=== PATIENT | male | born 1930 | race Two or more races ===

== ENCOUNTER → 2016-05-10 | Outpatient (CLI) | payer MEDICARE, OTHER ==
[~2016-05-10] MED LIST: AFRIN15 M1 INH; ALDACTONE25 MG PO; ASPIRIN LO-DOSE81 MG PO; COLACE100 MG PO; COREG6.25 MG PO; CRESTOR20 MG PO; DRISDOL 5050000 UNIT PO; DULCOLAX10 MG R; ELIQUIS5 MG PO; FEOSOL325 MG PO; LANOXIN (DIGI125 MCG PO; LASIX20 MG PO; LASIX40 MG PO; LEVOTHROID (SY25 MCG PO; LISINOPRIL2.5 MG PO; MILK OF MA400 MG/5 M PO; MIRALAX PO527 GM/BOT PO; NITROSTAT0.4 MG SL; NORCO 5-325 TA1 EACH PO; OCEAN NASAL) (A44 ML NOSE; OXYGEN M-15 INH; PLAVIX75 MG PO; PROTONIX40 MG PO; PROZAC40 MG PO; ROBITUSSIN100 MG/5 M PO; TIROSINT25 MCG PO; TYLENOL ARTHRI650 MG PO; TYLENOL325 MG PO; VITAMIN B-121000 MCG PO; VITAMIN D50000 UNIT PO
[2016-05-10 14:11] LABS: ANION GAP 12.2 (10.0-19.0); CALCIUM 8.5 mg/dL (8.5-10.5); CREATININE 1.3 mg/dL (0.6-1.3); POTASSIUM 4.2 mMol/L (3.7-5.1)
== END | disposition disaster alternative care site (69) ==
LOC: LNHI 13:48
PROVIDERS: Internal Medicine Cardiovascular Disease
DX: I25.10 Atherosclerotic heart disease of native coronary artery without angina pectoris (principal); I50.22 Chronic systolic (congestive) heart failure; I35.0 Nonrheumatic aortic (valve) stenosis; I25.5 Ischemic cardiomyopathy; I48.2 Chronic atrial fibrillation

== ENCOUNTER → 2016-05-17 | Outpatient (CLI) | payer MEDICARE, OTHER ==
[2016-05-17 11:50] LABS: ANION GAP 14.4 (10.0-19.0); CALCIUM 8.8 mg/dL (8.5-10.5); CREATININE 1.8 mg/dL (0.6-1.3); POTASSIUM 4.4 mMol/L (3.7-5.1)
== END | disposition disaster alternative care site (69) ==
LOC: LNHI 11:00
PROVIDERS: Internal Medicine Cardiovascular Disease
DX: I50.22 Chronic systolic (congestive) heart failure (principal); I48.2 Chronic atrial fibrillation; I35.0 Nonrheumatic aortic (valve) stenosis; I25.10 Atherosclerotic heart disease of native coronary artery without angina pectoris

== ENCOUNTER 2016-06-02 20:19 | Emergency (ER) | payer MEDICARE, OTHER ==
--- NOTE | ~2016-06-02 | ER ---
PATIENT'S NAME: MIKE NOVOA [facility] AGE: 85 Y [address] ROOM: [place], [place] [address] LOCATION: [facility]LY [facility] ADMIT DATE: 06/02/2016 ER/Outpatient Report DISCHARGE DATE: 06/02/2016 FAMILY PHYSICIAN: Yohannes Parker MD ATTENDING PHYSICIAN: Keshav Correia Time of Arrival: 2019 hours. Time of Evaluation: 2023 hours. CHIEF COMPLAINT: Head laceration. HISTORY OF PRESENT ILLNESS: The patient is an 85-year-old male who presents to the emergency department today with chief complaint of head laceration. Apparently, he was attempting to sit down on a walker when he missed and landed on his head and hit likely the side of the bed. He has had some increased weakness and some falls over the past 10 days. The patient was in the [facility] after a stay in the hospital, but was recently moved home. His daughter is at the bedside and also answers questions. He does have some dementia. The patient denies any pain, 0/10 in severity. PAST MEDICAL HISTORY: Hypertension, AFib, gastroesophageal reflux disease, hard of hearing. PAST SURGICAL HISTORY: CABG, AICD, diskectomy, and heart stents. SOCIAL HISTORY: The patient denies any tobacco, alcohol, or illicit drug use. ALLERGIES: NO KNOWN DRUG ALLERGIES. MEDICATIONS: Please see list. ROS: All systems are reviewed by myself and are negative with the exception of those discussed in HPI and past medical history. PHYSICAL EXAMINATION: VITAL SIGNS: Weight 75.4 kg, blood pressure 102/64, pulse 89, respiratory rate 16, temperature 96.9, oxygen saturation 97% on room air. GENERAL: The patient is an 85-year-old male, who appears stated age, well- PATIENT'S NAME: MIKE NOVOA [facility] AGE: 85 Y [address] ROOM: [place], [place] [address] LOCATION: [facility] ADMIT DATE: 06/02/2016 ER/Outpatient Report DISCHARGE DATE: 06/02/2016 FAMILY PHYSICIAN: Yohannes Parker MD ATTENDING PHYSICIAN: Keshav Correia developed, well-nourished. HEENT: Head: Normocephalic. He does have evidence of trauma with a 2 cm laceration to the right occipitoparietal region. Pupils are equal, round, and reactive to light and accommodation. Extraocular motions are intact. Nares are patent bilaterally. TMs are clear. No hemotympanum. No Yip sign. No raccoon eyes. NECK: Supple. There is no midline tenderness to palpation. CARDIOVASCULAR: Regular rate and rhythm. No murmurs, rubs, or gallops. LUNGS: Clear to auscultation bilaterally. No wheezes, rales, or rhonchi. ABDOMEN: Soft, nontender, and nondistended. No rebound, rigidity, or guarding. MUSCULOSKELETAL: The patient does have tenderness to palpation of the right lower ribs. Moves all 4 extremities. No bony tenderness to palpation. SKIN: Warm and dry. He does have a 2 cm gaping laceration on the right occipitoparietal region. LABORATORY DATA AND X-RAYS: CBC: White blood cell count 3.4; hemoglobin 9.4, which is stable from 02/14/2016; platelets are 87. PTT 33, PT is 14.1, INR is 1.34. CMP is unremarkable except for BUN 39; creatinine 1.8, which is stable from 05/17/2016. LFTs are normal. Urinalysis is unremarkable. CT scan of the brain and C-spine are obtained, shows no acute process. IMPRESSION: 1. Mechanical fall. 2. Chronic anemia. 3. Chronic kidney disease. 4. Initial visit. EMERGENCY DEPARTMENT COURSE: The patient was brought back to the examination room. Seen and evaluated by myself. IV is established. Laboratory analysis and imaging are obtained as described above. The patient was given 1 L of normal saline. I discussed the results with the patient and his daughters as well as the son-in-law who is at the bedside. I have discussed that if the patient is getting more weak and having balance issues, he may need more care than can be provided at home. I have had this discussion with the family. The family and the patient would still like to go home at this time. The daughter does report she will stay with him over the weekend and have a family discussion over to determine perhaps that the patient needs a [facility] level of care. We did ambulate the patient throughout the emergency department here. He does ambulate unassisted with a walker. Family is comfortable with the care of plan at this time. I would like him to follow up with [facility] tomorrow for re-evaluation. I have discussed ziahxo-oz-tfxy instructions including worsening symptoms or any other concerns to return to the emergency department PATIENT'S NAME: MIKE NOVOA [facility] AGE: 85 Y [address] ROOM: [place], [place] [address] LOCATION: [facility] ADMIT DATE: 06/02/2016 ER/Outpatient Report DISCHARGE DATE: 06/02/2016 FAMILY PHYSICIAN: Yohannes Parker MD ATTENDING PHYSICIAN: Keshav Correia as soon as possible. The family is agreeable. The patient is agreeable without further questions. DISPOSITION: The patient discharged home in good condition. DO MANUELA DIAZ/modl /[id number] d: 06/03/16 0325 t: 06/03/16 0546, OUTPATIENT REPORT
[~2016-06-02 20:19] MED LIST changes: -FEOSOL325 MG PO; -TIROSINT25 MCG PO
[2016-06-02 21:00] LABS: BASOPHIL % 0.9 %; EOSINOPHIL % 1.2 %; HEMATOCRIT 32.1 % (33.0-50.0); HEMOGLOBIN 9.4 g/dL (11.0-16.0); IMMATURE GRANULOCYTE % 0.3 %; LYMPHOCYTE % 28.4 %; MCHC 29.3 gm/dL (32.0-36.5); MONOCYTE # 0.4 K/uL (0.0-1.0); MONOCYTE % 12.3 %; NEUTROPHIL % 56.9 %; NRBC % 0.9 /100WBC (0-0.00); RBC 3.91 M/uL (3.50-5.50); WBC 3.4 K/uL (4.0-11.0)
[2016-06-02 21:01] LABS: INR - (THERAPEUTIC) 1.34 (0.92-1.07); MCV 82.1 fl (83.0-98.0); PLATELET COUNT 87 K/uL (150-450); PROTIME 14.1 SECONDS (9.8-11.4); PTT 33 SECONDS (25-32); RDW-CV 19.9 % (11.9-14.6)
[2016-06-02 21:02] LABS: ALBUMIN 2.9 gm/dL (3.5-5.0); ANION GAP 15.7 (10.0-19.0); CALCIUM 8.7 mg/dL (8.5-10.5); CREATININE 1.8 mg/dL (0.6-1.3); POTASSIUM 4.7 mMol/L (3.7-5.1); TOTAL BILIRUBIN 1.2 mg/dL (0.0-1.5); TOTAL PROTEIN 7.2 g/dL (6.0-8.4)
[2016-06-02 22:19] LABS: BILIRUBIN URINE NEGATIVE (NEGATIVE); BLOOD URINE NEGATIVE /UL (NEGATIVE); COLOR URINE YELLOW (YELLOW); GLUCOSE URINE NEGATIVE (NEGATIVE); KETONE URINE NEGATIVE (NEGATIVE); LEUKOCYTES URINE NEGATIVE /UL (NEGATIVE); NITRITE URINE NEGATIVE (NEGATIVE); PROTEIN URINE 30 mg/dL (NEGATIVE); SPEC GRAVITY URINE 1.025 (1.003-1.035); TURBIDITY URINE CLEAR (CLEAR); UROBILINOGEN URINE 4 mg/dL (NORMAL)
[2016-06-02 22:36] LABS: RBC URINE NEGATIVE #/HPF (NEGATIVE); WBC URINE NEGATIVE #/HPF (NEGATIVE)
[2016-06-02 22:37] LABS: BACTERIA URINE NEGATIVE (NEGATIVE)
== END 2016-06-02 22:43 | disposition disaster alternative care site (69) ==
LOC: GACC 20:19
PROVIDERS: Emergency Medicine
PROC: 0HQ0XZZ Repair Scalp Skin, External Approach (ICD-10-PCS; principal; 2016-06-02)
DX: S01.01XA Laceration without foreign body of scalp, initial encounter (principal); D64.9 Anemia, unspecified; I12.9 Hypertensive chronic kidney disease with stage 1 through stage 4 chronic kidney disease, or unspecified chronic kidney disease; N18.9 Chronic kidney disease, unspecified; K21.9 Gastro-esophageal reflux disease without esophagitis; I48.91 Unspecified atrial fibrillation; W19.XXXA Unspecified fall, initial encounter
CPT/HCPCS: J7030

== ENCOUNTER → 2016-06-02 | Outpatient (CLI) | payer MEDICARE, OTHER | END | disposition disaster alternative care site (69) | LOC: GAMB 20:04 | DX: R53.1 Weakness (principal); S01.91XD Laceration without foreign body of unspecified part of head, subsequent encounter; M54.5 Low back pain; I25.5 Ischemic cardiomyopathy; E03.9 Hypothyroidism, unspecified; I48.2 Chronic atrial fibrillation; I10 Essential (primary) hypertension; R29.6 Repeated falls; Z79.82 Long term (current) use of aspirin; Z79.899 Other long term (current) drug therapy; W19.XXXD Unspecified fall, subsequent encounter | CPT/HCPCS: A0425; A0429 ==

== ENCOUNTER → 2016-06-29 | Outpatient (CLI) | payer MEDICARE, OTHER ==
[~2016-06-29] MED LIST changes: +FEOSOL325 MG PO; +TIROSINT25 MCG PO
== END | disposition disaster alternative care site (69) ==
LOC: LNHI 17:22
DX: I25.5 Ischemic cardiomyopathy (principal); I48.2 Chronic atrial fibrillation; I25.10 Atherosclerotic heart disease of native coronary artery without angina pectoris

== ENCOUNTER 2016-07-20 16:23 | Inpatient (IN) | payer MEDICARE, OTHER ==
[~2016-07-20] VITALS: Ht 182.9 cm; Wt 69.1 kg
--- NOTE | ~2016-07-20 | HP ---
PATIENT'S NAME: MIKE NOVOA [facility] AGE: 85 Y [address] ROOM: [address] [address] LOCATION: [facility] ADMIT DATE: 07/20/2016 History & Physical DISCHARGE DATE: FAMILY PHYSICIAN: LIYAH PHILLIPS MD ATTENDING PHYSICIAN: LIYAH PHILLIPS DATE OF SERVICE: CHIEF COMPLAINT: Increasing weakness and inability to get out of bed. HISTORY OF PRESENT ILLNESS: The patient is an elderly 85-year-old male with a known history of chronic systolic congestive heart failure with EF of 15% to 20%. He has had a LifeVest and I do believe he has a defibrillator placed in 02/07/[address] Abraham. He does have a history of a recent PCI procedure in 10/2015 to his RCA. He had significant coronary artery disease at that time of both his [place] vessels and it looks like some of his graft vessels. They planned on treating things in a staged manner. As I mentioned, the patient was at home and was increasingly weak, he unfortunately is confused and cannot really verbalize anything what is going on, so I am mainly going based on the ER notes. His family is not available at this time. They called the office and he was too weak to be transported in so they had them go ahead and bring him to the hospital. He was evaluated in the emergency room and was thought to be slightly tachycardic, was thought to have an acute exacerbation of his CHF. Although, he had no significant edema, his pro-BNP was 13,351. He has a known anemia and it was stable at 11.4, his platelet count is stable at 88, his creatinine is 2.1, I believe he is normally about 1.5 in nature; so, his creatinine is increased. It was thought best that to go ahead and admit the patient. ALLERGIES: NONE KNOWN. CURRENT MEDICATIONS: Include: 1. Acetaminophen 325 two tablets every 6 hours as needed. 2. Aspirin 81 mg daily. 3. Carvedilol 3.125 mg one tablet once a day by mouth. 4. Colace 100 mg once daily. 5. Crestor 20 mg once daily. 6. Fluoxetine 20 mg once daily. 7. Lasix 20 mg daily. 8. Levothyroxine 25 mcg daily. 9. MiraLAX 17 g daily. PATIENT'S NAME: SOMMER, MIKE G [facility] AGE: 85 Y [address] ROOM: [place] [address] LOCATION: [facility] ADMIT DATE: 07/20/2016 History & Physical DISCHARGE DATE: FAMILY PHYSICIAN: LIYAH PHILLIPS MD ATTENDING PHYSICIAN: LIYAH PHILLIPS 10. Nitrostat 0.4 sublingually p.r.n. chest pain, may repeat to a total of 3 tabs over a 15 minute period. 11. Pantoprazole 40 mg daily. 12. Prozac 20 mg daily. 13. Spironolactone 25 mg mtkc-b-axoiyg daily. 14. Tirosint 25 mcg oral capsule 1 capsule orally daily, which is his thyroid replacement. 15. Vitamin B12 a 1000 mcg tablet daily. PAST MEDICAL HISTORY: Chronic health problems includes history of hypothyroidism, acquired in nature, scufr-nr-lkereix systolic congestive heart failure with his most recent EF being 15% to 20% in 09/2015. He did have an AICD placed in 01/2016. He has a history of chronic atrial fib, chronic back pain, cardiovascular disease with history of coronary artery disease involving his coronary artery bypass graft of his [place] heart without angina, history of depression, dizziness, hypertension, hypothyroidism, atrial fibrillation, and previous history of CVA along with vitamin D and vitamin B12 deficiencies, history of hyperlipidemia, constipation, and a history of a GI bleed, which they were unable to do scopes at that time due to his recent GI bleed and the history of his recent stents. PREVIOUS SURGERIES: He had a coronary artery angiogram in 2015 with coronary artery bypass grafting in the past, diskectomy, previously intramedullary rodding of his femur for a trochanteric fracture. Cardiac cath in 10/21/2015 had showed severe stenosis of his [place] RCA, severe stenosis of his [place] LAD, distal to the saphenous vein graft, saphenous vein graft to circumflex was not identified, they did a PCI with drug-eluting stent x2 to his RCA, they recommended continued medical management and were considering a staged procedure to work on other options. He has had previous vertebroplasty and kyphoplasty along with a previous diskectomy and a history of intramedullary rodding of his femur for trochanteric fracture. SOCIAL HISTORY: The patient lives at home. He is retired from the [employer]. He is a former smoker. He uses seatbelts. He does not actively smoke or drink. He is . REVIEW OF SYSTEMS: Just increasing weakness. Denies any recent chest pains or swelling. Denies any recent shortness of breath, but I do not think he has really been active. PHYSICAL EXAMINATION: GENERAL: Alert elderly male who responds appropriately to questions, but just PATIENT'S NAME: MIKE NOVOA [facility] AGE: 85 Y [address] ROOM: [address] [place] [id number] LOC[facility]: [facility] ADMIT DATE: 07/20/2016 History & Physical DISCHARGE DATE: FAMILY PHYSICIAN: LIYAH PHILLIPS MD ATTENDING PHYSICIAN: LIYAH PHILLIPS cannot seem to recall events prior to today. VITAL SIGNS: His pulse is currently around 110-120 and his blood pressures in the 120s/60s. HEENT: Normal. NECK: Supple. No adenopathy. LUNGS: Clear. HEART: Tachycardic and irregular. ABDOMEN: Benign. EXTREMITIES: Negative. NEUROLOGIC: Cranial nerves 2 through 12 are intact. Reflexes are 1+ and symmetric. The patient can lift his extremities out of the bed; so, he has got 4+ to 5 strength, but he just feels weak and was unable to walk. LABORATORY DATA: CPK is 50, troponin is less than 0.040, and his pro-BNP was 13,351. His white count is stable at 3.6, hemoglobin stable 11.4, hematocrit 39.3, and platelet count is 85, which is also stable. His glucose is 96, BUN 33, creatinine 2.1, sodium 139, potassium 4.4, chloride 104, CO2 24, calcium 9.1, total protein 7.2, albumin 3.0, AST 31, ALT 23, alkaline phosphatase 132, total bili 2.3, magnesium 2, and eGFR is at 30. His pro-time is 14.6 with an INR of 1.39 and a PTT of 32. CK-MB is 1.4. His differential showed 56% neutrophils. Chest x- ray, PA and lateral, showed stable cardiomegaly. Sigiyfxd-ii-rwrfgkyd parenchymal lung scarring is stable. No consolidating pneumonia. Stable right-sided pacemaker and also stable granuloma at the right lung base. CT scan of his head showed atrophic changes, but no acute process. ASSESSMENT: 1. Queuu-nr-jmbwcof systolic congestive heart failure. 2. History of automatic implantable cardioverter-defibrillator placement due to an ejection fraction of 15% to 20%. 3. Known coronary artery disease of both his [place] and graft vessels. He is status post coronary artery bypass grafting and then more recently in 10/2015, he had drug-eluting stent x2 of his right coronary artery. His saphenous vein graft to his circumflex was occluded. He had significant disease of his [place] left anterior descending also. 4. Hypothyroidism. 5. Chronic atrial fibrillation. 6. History of osteoporosis with previous compression fractures. 7. History of B12 and vitamin D deficiency. 8. History of hypothyroidism. PLAN: We will go ahead and do repeat labs. We are going to get repeat BMP, magnesium, CBC, and TSH in the morning. He has not had a TSH. We are going to work on gently diuresing him and we will otherwise continue to follow him. PATIENT'S NAME: MIKE NOVOA [facility] AGE: 85 Y [address] ROOM: [place] [address] [facility] ADMIT DATE: 07/20/2016 History & Physical DISCHARGE DATE: FAMILY PHYSICIAN: LIYAH PHILLIPS MD ATTENDING PHYSICIAN: LIYAH PHILLIPS I am going to go ahead and cover him with Lovenox and with sequential compression of his legs. He does have the past history of the GI bleed, but that has been stable for several months now. We will follow the patient along closely and hopefully his situation will turn around. He does wish to be a DNR and DNI. The order was written. MD JAD ASHER/zully /[id number] D: [id number] T: [id number] HISTORY & PHYSICAL
--- NOTE | ~2016-07-20 | CON ---
PATIENT'S NAME: MIKE POOLE [facility] AGE: 85 Y [address] ROOM: [place] [address] LOCATION: [facility] ADMIT DATE: 07/20/2016 Consultation DISCHARGE DATE: FAMILY PHYSICIAN: LIYAH PARKER MD ATTENDING PHYSICIAN: LIYAH PARKER DATE OF CONSULTATION: 07/21/2016 REFERRING PHYSICIAN: Emilia Hull MD CARDIOLOGY CONSULTATION NOTE REFERRING PHYSICIAN: Liyah Parker MD REASON FOR CONSULTATION: History of cardiomyopathy with congestive heart failure. HISTORY OF PRESENT ILLNESS: Mr. Poole is an 85-year-old male with history of ischemic cardiomyopathy with ejection fraction of 15% to 20%. The patient is confused and has altered mental status, and is not oriented, and hence history was primarily obtained from the chart and from his daughter. According to his daughter, the patient has been feeling progressively weaker for the last few weeks. He denied any chest pain. No history of increasing shortness of breath. He can walk only a few steps and then gets very tired. He follows with Dr. Hull and he had cardiac catheterization recently in October 2015 and percutaneous intervention of the right coronary artery. Subsequently, he also had ICD placed for cardiomyopathy. He was admitted to the hospital in view of progressively increasing fatigue and generalized overall poor condition. The patient was also found to have elevated proBNP at 13,351, even though he did not have any clinical findings to suggest significant fluid overload. Also his creatinine was found to be elevated at 2.1. ALLERGIES: NO KNOWN DRUG ALLERGIES. REVIEW OF SYSTEMS: The patient denied any change in vision. No history of nausea or vomiting. No history of fever. No history of expectoration even though he has some cough. No history of urinary symptoms. No history of recent diarrhea. He has very poor functional capacity. CURRENT MEDICATIONS: His medications as an outpatient included: 1. Aspirin 81 mg daily. PATIENT'S NAME: MIKE POOLE [facility] AGE: 85 Y [address] ROOM: [place] [address] LOCATION: [facility]U ADMIT DATE: 07/20/2016 Consultation DISCHARGE DATE: FAMILY PHYSICIAN: LIYAH PARKER MD ATTENDING PHYSICIAN: LIYAH PARKER 2. Carvedilol 3.125 mg b.i.d. 3. Crestor 20 mg daily. 4. Lasix 20 mg daily. 5. Spironolactone 12.5 mg daily. Please see MAR for the remaining medications. PAST MEDICAL HISTORY: 1. Ischemic cardiomyopathy with ejection fraction of 15% to 20%. 2. Status post coronary artery bypass graft and status post percutaneous intervention of the right coronary artery, and status post ICD placement in January 2000. 3. Chronic atrial fibrillation. 4. Previous history of CVA. 5. Hyperlipidemia. 6. History of GI bleed. 7. His last cardiac catheterization in October 2014 reported severe stenosis in the [place] of right coronary artery status post stent. Stenosis of the [place] left anterior descending artery, distal to saphenous vein graft, and saphenous vein graft to circumflex could not be identified. SOCIAL HISTORY: The patient lives at home and his daughter helps him out. PHYSICAL EXAMINATION: GENERAL APPEARANCE: On examination, he is awake, however, he is not oriented to time or place. He is oriented to person. VITAL SIGNS: His pulse rate is 99 beats per minute, blood pressure is 107/65, temperature 97.7, and respiratory rate 16. HEENT: Pupils are equal and reactive. Tongue is dry. His head is atraumatic and normocephalic. NECK: No significant jugular venous distention is present. CHEST: Clear to auscultation. Breath sounds are diminished on both sides. CVS: S1 and S2 are audible. They are irregular in rate and rhythm. ABDOMEN: Soft, nontender. Bowel sounds are present. EXTREMITIES: Show no significant pedal edema. SKIN: Warm and dry. NEUROLOGIC: The patient is not oriented to time or place. He is oriented to person. He is able to move all 4 extremities. LABORATORY DATA: Sodium 140, potassium 4.4, chloride 107, CO2 of 23, BUN 35, and creatinine 1.9. Albumin 3, globulin 4.2, AST 31, ALT 23, and magnesium 2. CPK 53, CK-MB 1.4, and troponin I less than 0.04. ProBNP 11,813. White blood cell count 3.4, hemoglobin is 11.0, and platelet count 74,000. His chest x-ray showed PATIENT'S NAME: MIKE POOLE [facility] AGE: 85 Y [address] [address] [facility] AD[facility] DATE: 07/20/2016 Consultation DISCHARGE DATE: FAMILY PHYSICIAN: LIYAH PARKER MD ATTENDING PHYSICIAN: LIYAH PARKER cardiomegaly with no findings suggestive of congestive heart failure. Chronic fibrotic changes are noted in the lungs. Echocardiogram in September 2015 showed ejection fraction of 15% to 20%, spontaneous echo contrast was noted in the left atrium with suspected left atrial appendage thrombus, and moderate-to- severe mitral regurgitation. ASSESSMENT AND PLAN: 1. Fatigue. Etiology is multifactorial including cardiomyopathy with ejection fraction of 15% to 20%, advanced age, dementia, and renal insufficiency. 2. Ischemic cardiomyopathy with ejection fraction of 15% to 20%. We will continue medical therapy with beta blockers, aspirin, and statin. Monitor intake and output. Continue home diuretics. No clinical evidence of decompensated heart failure. 3. Atrial fibrillation with rapid ventricular rate. We will continue and titrate beta-blockers as tolerated. We will consider addition of digoxin, if his blood pressure remains borderline. 4. Acute on chronic kidney disease. Management per primary care provider. 5. Dementia. Management per primary care provider. 6. The plan of care was discussed with the patient and his daughter and with the nursing staff. Overall prognosis is guarded in view of poor left ventricular systolic function, poor functional capacity, dementia, and other comorbid medical conditions. We will follow the patient along with you. Thank you for allowing us in taking part in the care of this pleasant patient. MD ANNIKA ROSADO/zully /[id number] d: 07/21/163 t: 08/03/16 1743, CONSULTATION REPORT
--- NOTE | ~2016-07-20 | DS ---
PATIENT'S NAME: MIKE NOVOA [facility] AGE: 85 Y [address] ROOM: [place] [address] LOCATION: GPCU ADMIT DATE: 07/20/2016 Discharge Summary DISCHARGE DATE: 07/27/2016 FAMILY PHYSICIAN: Liyah Parker MD ATTENDING PHYSICIAN: Liyah Parker FINAL PRIMARY DISCHARGE DIAGNOSIS: Weakness. ADDITIONAL DIAGNOSES: 1. Aspiration pneumonia. 2. Aspiration, currently on mechanical soft and nectar-thick liquids. 3. Chronic systolic congestive heart failure, ejection fraction 10%-15%. 4. Chronic ischemic heart disease. 5. Essential hypertension. 6. Persistent atrial fibrillation. 7. Hyperlipidemia. 8. Left atrial thrombus. 9. Kidney disease, stage 3, associated with congestive heart failure. 10. Depression. 11. History of constipation. 12. History of vitamin B12 and D deficiency. 13. Depression. CONSULTATIONS: Cardiology on admission, July 21, 2016, [facility] Cardiology. PROCEDURES: None. IMAGING: Modified barium swallow, July 24, 2016, showed poor oral control with difficulty in bolus formation and propulsion. DISCHARGE EXAM: GENERAL: A pleasant, elderly adult male, in no acute distress. HEAD: Normocephalic, atraumatic. Eyes: Conjunctivae clear. Sclerae white. ENT: Mucous membranes moist. The patient has absent dentition, but does have dentures present. NECK: Supple. Trachea is midline. HEART: Irregularly irregular with a grade 3/6 systolic ejection murmur best heard at the left upper sternal border. LUNGS: Clear to auscultation bilaterally. ABDOMEN: Soft, nontender, and nondistended. EXTREMITIES: Warm, well perfused. No clubbing, cyanosis, or edema. SKIN: There are no acute rashes. The patient does have some ecchymoses present. NEUROLOGIC: Cranial nerves 2 through 12 grossly intact. The patient does have good bottle labeler strength 5/5 bilaterally. PATIENT'S NAME: MIKE NOVOA [facility] AGE: 85 Y [address] ROOM: [place] [address] LOCATION: GPCU ADMIT DATE: 07/20/2016 Discharge Summary DISCHARGE DATE: 07/27/2016 FAMILY PHYSICIAN: Liyah Parker MD ATTENDING PHYSICIAN: Liyah Parker DISCHARGE MEDICATIONS: 1. Eliquis 2.5 mg 1 tab p.o. b.i.d. 2. Carvedilol 6.25 mg p.o. b.i.d. 3. Cleocin 300 mg p.o. q.i.d. x5 days with stop date of 08/01/2016. 4. Vitamin B12, 1000 mcg p.o. daily. 5. Colace 100 mg p.o. b.i.d. 6. Iron sulfate 325 mg p.o. b.i.d. 7. Lasix 20 mg one tab p.o. daily. 8. Levaquin 750 mg q.48 hours with stop date of 08/01/2016. 9. Levothyroxine 50 mcg one tab p.o. daily. 10. Protonix 40 mg one tab p.o. q.h.s. 11. MiraLAX 17 g p.o. daily. 12. Crestor 20 mg one tab p.o. daily. 13. Prozac 40 mg one tab p.o. daily. 14. Spironolactone 2.5 mg one tab p.o. daily. 15. Acetaminophen 650 mg q.4 hours p.r.n. pain. 16. Hydrocodone 5/325 one tab q.4 hours p.r.n. p.o. 17. Mylanta 30 mL p.o. q.i.d. p.r.n. 18. Dulcolax 10 mg rectally every day p.r.n. constipation. 19. Robitussin 200 mg p.o. q.6 hours p.r.n. 20. Milk of Mag 30 mL p.o. daily p.r.n. constipation. 21. Nitroglycerin 0.4 mg one tab sublingual q.5 minutes p.r.n. chest pain. BRIEF HOSPITAL COURSE: Mr. Novoa is an 85-year-old gentleman with complex past medical history as noted above. He was admitted to the [facility] PCU from the [facility] Emergency Department for weakness. The patient was in his usual state of health and began progressively getting weaker. He had significant issue and was brought to the emergency department. He was found to have an elevated BNP, but did not appear to be overly fluid overloaded. Cardiology was consulted on this patient and initially recommended Lovenox for his left atrial thrombus. The patient had stable hemoglobin, and his platelets were overall okay in the 70-80 range despite being on Lovenox. On hospital day #4, the patient did develop some aspiration pneumonia and was started on clindamycin and Levaquin IV. He received physical, occupational, speech therapies while in the hospital. Because of his significant weakness and inability to go home, he was transferred to [facility] with continued antibiotics with a stop date of 08/01/2016. He will continue to receive therapies while in longterm. DISCHARGE RECOMMENDATIONS: Follow up with Dr. Parker within one week. He will be transferred to [facility] for further rehabilitation. Additionally, the patient was started on Eliquis for left atrial thrombus. We will ensure that PATIENT'S NAME: MIKE NOVOA [facility] AGE: 85 Y [address] ROOM: [place] [address] LOCATION: [facility] ADMIT DATE: 07/20/2016 Discharge Summary DISCHARGE DATE: 07/27/2016 FAMILY PHYSICIAN: Liyah Parker MD ATTENDING PHYSICIAN: Liyah Parker there is no significant chance for evidence of GI bleed or other serious bleeding, particularly with falls. He does have significantly high-risk stroke, especially given his atrial fibrillation and so we will make sure that he is properly anticoagulated. DISCHARGE CONDITION: Fair. DISCHARGE PROGNOSIS: Fair. LIYAH PARKER MD BAB/modl /[id number] d: 07/28/163 t: 08/06/16 0803, DISCHARGE SUMMARY
--- NOTE | ~2016-07-20 | CON ---
PATIENT'S NAME: MIKE NOVOA [facility] AGE: 85 Y [address] ROOM: [place] [address] LOCATION: GPCU ADMIT DATE: 07/20/2016 Consultation DISCHARGE DATE: 07/27/2016 FAMILY PHYSICIAN: Yohannes Parker MD ATTENDING PHYSICIAN: Yohannes Parker DATE OF CONSULTATION: 07/24/2016 REFERRING PHYSICIAN: Emilia Hull MD PALLIATIVE MEDICINE CONSULTATION LOCATION: [facility]. REFERRING PROVIDER: Emilia Hull MD CHIEF COMPLAINT/REASON FOR CONSULTATION: Palliative Care referral for the patient and family support and education on chronic disease. HISTORY OF PRESENT ILLNESS: The patient is an 85-year-old male with a known history of chronic systolic congestive heart failure with an EF of 15% to 20% who recently had a defibrillator placed in January of 2016. Family reports that over the last 2 weeks, the patient has been getting increasingly weak and confused and on the day of admission, was too weak to get out of bed. On admission, his proBNP was 13,351 and his creatinine was increased to 2.1. Family reports the patient lives at home alone, but that his daughter checks in daily. She reports a recent fairly steady decline in his condition and that he stopped eating on Sunday prior to admission. At the time of this consult, the patient is confused and is only able to say a few words. He does deny pain. Denies shortness of breath. Denies chest pain. Denies any recent nausea or vomiting, and at the current time is n.p.o. after aspirating and developing aspiration pneumonia during this hospital stay. He is to have a followup MBS with dietary recommendations to follow later today. Given the patient's recent decline, Palliative Care has been consulted for patient and family support and ongoing goals of care conversation. PAST SURGICAL HISTORY: Previous Operations: 1. CABG. 2. Cystectomy. 3. Intramedullary rodding of femur for intertrochanteric fracture. 4. PCI with stents. PATIENT'S NAME: MIKE NOVOA [facility] AGE: 85 Y [address] ROOM: [place] [address] LOCATION: GPCU ADMIT DATE: 07/20/2016 Consultation DISCHARGE DATE: 07/27/2016 FAMILY PHYSICIAN: Yohannes Parker MD ATTENDING PHYSICIAN: Yohannes Parker 5. AICD placement in January 2016. PAST MEDICAL HISTORY: 1. Chronic systolic congestive heart failure with EF of 15% to 20%. 2. Hypothyroidism. 3. History of chronic atrial fibrillation with atrial clot. 4. Chronic back pain. 5. Coronary artery disease. 6. Hypertension. 7. History of previous CVA. 8. Hyperlipidemia. 9. History of a GI bleed. MEDICATIONS: Please see current MAR. ALLERGIES: NO KNOWN ALLERGIES. SOCIAL HISTORY: The patient lives alone in his own home here in [place]. His daughter checks in frequently. He does have a history of 3 to 4 pack per day history of smoking for 20 years. He quit in 1964. No current tobacco or alcohol use. FAMILY HISTORY: Unknown for his parents. He does have a brother with heart disease. REVIEW OF SYSTEMS: GENERAL: The patient's family reports a poor appetite and are unaware of any changes in weight. No recent fever, chills, or night sweats. HEENT: No change in vision or hearing. No headaches. Denies sinus congestion. RESPIRATORY: No cough. No shortness of breath. CARDIOVASCULAR: No chest pain, pressure, or palpitations. Denies orthopnea. No peripheral edema. GASTROINTESTINAL: No nausea, vomiting, diarrhea, or constipation. No recent black or tarry stools. The family denies any previous difficulties with chewing or swallowing. GENITOURINARY: No dysuria. Does wear incontinence products. MUSCULOSKELETAL: Denies any back or joint pain at this time. Had been ambulating at home. NEUROLOGICAL: No numbness. No tingling. No seizures. INTEGUMENTARY: No rashes or open areas. HEMATOLOGIC: No new bruising or bleeding. PATIENT'S NAME: MIKE NOVOA [facility] AGE: 85 Y [address] ROOM: [address] [place] [address] LOCATION: GPCU ADMIT DATE: 07/20/2016 Consultation DISCHARGE DATE: 07/27/2016 FAMILY PHYSICIAN: Yohannes Parker MD ATTENDING PHYSICIAN: Yohannes Parker PHYSICAL EXAMINATION: VITAL SIGNS: Blood pressure is 99/58, heart rate 104, temperature 98.2, respirations 16, and O2 saturation is 92% on room air. GENERAL: Reveals a drowsy, but easily alert elderly male, does not appear to be in any acute distress, resting on the hospital bed. HEENT: Normocephalic and atraumatic. Pupils are equal and reactive to light. Sclerae are nonicteric. Conjunctivae pink. Tongue and mucous membranes are dry. CARDIOVASCULAR: Heart tones are irregularly irregular. Tachycardic. RESPIRATORY: Respirations are regular and nonlabored. Lung sounds are clear to auscultation bilaterally. GASTROINTESTINAL: Abdomen is soft. Nontender. Bowel sounds are present. MUSCULOSKELETAL: No significant joint deformities. Peripheral pulses are 1+ bilaterally with no clubbing, cyanosis, or edema. SKIN: Warm and dry. No unusual lesions or rashes. NEUROLOGICAL: Grossly intact. IMPRESSION AND PLAN: 1. Altered mental status. 2. Dysphagia. To have MBS today with dietary recommendations per Speech. 3. Weakness. PT and OT have been initiated. 4. Code status. The patient is a DNR/DNI and power of contracts attorney paperwork is on the chart. I visited with the patient's daughter and Daniela BOURGEOIS. I introduced the role of Palliative Care for additional support and assistance with goals of care. Discussed his chronic conditions and management of these with his acute issues as well. She does become tearful during our conversation and we talked about caregiver burnout as she has been the primary caregiver for him first since his return from [place]. At this point, she is deciding that perhaps it is time for him to go to a chcf and stay there at this time. As previously she talked about how he had been at [facility] and she had told him that she would work to get him home, but it has been a struggle with caring for him. I talked with Daniela about patient's quality of life and decisions going forward with keeping that in mind as well. Provided education to her on caregiver burnout and guidance as to where to go from here. I talked about various options to include chcf placement versus Home Health. I also provided a little bit of education on hospice should his condition continue to decline. At this point, she is wishing to pursue a chcf placement and try therapies, but also wants him to have a good quality of life. Provided emotional support and active listening. We will continue to follow for support and I also informed Daniela that Palliative Care could follow in the chcf setting if she wished for additional support and ongoing conversation. Total visit was 35 minutes. Greater than 50% of this time was spent in PATIENT'S NAME: MIKE NOVOA [facility] AGE: 85 Y [address] ROOM: [place] [address] LOCATION: GPCU ADMIT DATE: 07/20/2016 Consultation DISCHARGE DATE: 07/27/2016 FAMILY PHYSICIAN: Yohannes Parker MD ATTENDING PHYSICIAN: Yohannes Parker providing education and counseling. Thank you for allowing me to assist this patient and family. COSME CONNORS NP FOR ANALI GARCIA MD DLS/modl /[id number] CC: Emilia Hull MD d: 08/01/16 1744 t: 08/08/16 1944, CONSULTATION REPORT
--- NOTE | ~2016-07-20 | ER ---
[facility] 85 [facility] [address] ROOM: [place] [id number] LOCATION: GPCU ADMIT DATE: 07/20/2016 ER/Outpatient Report DISCHARGE DATE: FAMILY PHYSICIAN: LIYAH PARKER MD ATTENDING PHYSICIAN: LIYAH PARKER Time of Arrival: 1623 hours. Time Seen: 1633 hours. IDENTIFICATION: 85-year-old male. CHIEF COMPLAINT: Weakness. HISTORY OF PRESENT ILLNESS: The patient has had increased weakness, a little bit increased confusion according to his daughter, and unable to walk as well. He lives alone, but she has been staying with him. No fall or injury. He said he is a little bit dizzy. ALLERGIES: NO KNOWN DRUG ALLERGIES. CURRENT MEDICATIONS: 1. Vitamin B12, 1000 mcg daily. 2. Colace 100 mg b.i.d. 3. Coreg on June 29 was decreased to 3.125 mg just once daily. 4. Crestor 20 mg daily. 5. Ferrous sulfate 325 mg b.i.d. 6. Lasix 20 mg daily. 7. Aspirin 81 mg daily. The patient's Lanoxin was discontinued at his last visit. Lasix was decreased from 40-20 mg. He stopped taking his Plavix, and his Coreg was decreased by telephone to 3.125 mg just once daily. MEDICAL PROBLEMS: 1. 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 2. Chronic atrial fibrillation. 3. Chronic kidney disease. 4. Coronary artery disease with previous CABG and previous PCI to right coronary artery. The patient had a cardiac catheterization in October 2015, status post drug-eluting stent to right coronary artery stenosis. PATIENT'S NAME: MIKE NOVOA [facility] AGE: 85 Y [address] ROOM: [address] [address] LOCATION: GPCU ADMIT DATE: 07/20/2016 ER/Outpatient Report DISCHARGE DATE: FAMILY PHYSICIAN: LIYAH PARKER MD ATTENDING PHYSICIAN: LIYAH PARKER 5. Hypothyroidism. 6. Chronic congestive heart failure. 7. Chronic back pain. 8. Depression. 9. Hypertension. 10. Previous history of stroke. 11. Hyperlipidemia. 12. Chronic constipation. PRIOR SURGERIES: 1. CABG. 2. Diskectomy. 3. Kyphoplasty. 4. Intramedullary rodding of femur for a trochanteric fracture. SOCIAL HISTORY: The patient currently lives alone, but his daughter is staying with him. Tobacco use: He is a former smoker. Alcohol use: None. He is . He is retired from the [employer]. REVIEW OF SYSTEMS: All systems reviewed and negative other than what is noted in the HPI. PHYSICAL EXAMINATION: VITAL SIGNS: Blood pressure 99/66, pulse 116, respirations 20, temperature 98.3, sats 95%. GENERAL: An 85-year-old male, who is very weak, in mild distress, very pale. HEENT: Head: Normocephalic atraumatic. Ears: TMs translucent both ears. Eyes: Pupils are equal and reactive to light and accommodation. Extraocular movements intact. Conjunctivae clear. Nose: Mucosa pink. No lesions. Mouth: No lesions. Pharynx benign. NECK: Supple. No lymphadenopathy. LUNGS: Clear to auscultation. Breath sounds are equal. HEART: Regular rate and rhythm. No murmur, rub, or gallop. ABDOMEN: Bowel sounds present. Soft, nondistended, and nontender. SKIN: [place], warm, and dry. No lesions or rashes noted. NEUROLOGIC: The patient is alert. Answers almost all of my questions, but does have some occasional confusion. Cranial nerves 2 through 12 grossly intact. Motor strength 5/5 throughout. Sensation is intact to light touch. Motor strength decreased in both lower extremities. He is able to lift his legs off the cot, but not very high and not able to keep them there for very PATIENT'S NAME: MIKE NOVOA [facility] AGE: 85 Y [address] ROOM: [address] [place], [place] [address] [facility] ADMIT DATE: 07/20/2016 ER/Outpatient Report DISCHARGE DATE: FAMILY PHYSICIAN: LIYAH PARKER MD ATTENDING PHYSICIAN: LIYAH PARKER. He does have some just generalized lower extremity weakness. An IV was initiated. Normal saline at 75 mL/h. DIAGNOSTIC STUDIES: Hemoglobin 11.4, which has improved from 9.4 on June 02. Hematocrit 39.3. Platelets 85, which is stable compared to 87 on June 02. White blood cell count 3.6, which is stable from 3.4. Normal differential. INR 1.39. Sodium 139, potassium 4.4, chloride 104, CO2 of 24, BUN 33, creatinine 2.1 which is elevated from 1.8, bilirubin elevated to 2.3 which is elevated from 1.2. Troponin I less than 0.040. CK-MB 1.4. ProBNP elevated at 13,351, which is up from June 29 when it was 7055. EKG atrial fibrillation at 99 beats per minute. Nonspecific ST-T wave changes. No acute changes are noted. One-view chest x-ray: Cardiomegaly, AICD pacemaker, stable granuloma of right lung base. Head CT without contrast: Generalized atrophic changes and white matter small vessel ischemic changes. No acute findings. IMPRESSION: 1. Lower extremity weakness. 2. Pancytopenia, which appears to be stable. 3. Chronic kidney disease with acute kidney injury. 4. Hyperbilirubinemia. 5. Acute systolic congestive heart failure. 6. Chronic systolic congestive heart failure. 7. Atrial fibrillation. 8. Ischemic cardiomyopathy. PLAN: For admission per Dr. Cerna for Dr. Parker. TOR BORGES MD CAR/modl /[id number] d: 07/21/16 0050 t: 07/23/16 0701, OUTPATIENT REPORT
--- NOTE | ~2016-07-20 | ECHO ---
Transthoracic Echocardiography Report (TTE) Demographics Patient Name MIKE NOVOA Date of Study 07/21/2016 Patient Number [id number] Visit Number [id number] Date of 1930 Room Number G6301 Gender Male Number Age 85 year(s) Referring Anthony Stuffer Mindy Mclean, Physician Lauryn RT,RVT,RDCS Physician Interpreting Anthony Combs Health Technical Writer Physician Supervising Ordering Anthony Combs MD/MLP Physician Nurse Stress Field Agent Conclusions Summary Technically difficult study with suboptimal images Accurate chamber measurements could not be obtained due to inadequate endocardial border visualization. LV systolic function appears diminished with estimated left ventricular ejection fraction is 30-35%. Unable to comment on regional wall motion abnormalities due to suboptimal endocardial border delineation. The left atrium is mildly dilated. The right atrium is mild to moderately dilated. Mild to moderately dilated right ventricle. Mild-moderate mitral regurgitation by color Doppler. There is moderate aortic stenosis. The peak velocity is 3.0 m/s, the mean gradient is 21 mmHg, stroke volume index is 45 ml/m2. The gradients could be underestimated due to reduced LV systolic function There is mild to moderate aortic regurgitation by color Doppler. The estimated pulmonary pressure (RVSP) is 35-40 mmHg. Procedure Type of Study TTE procedure:2D Echocardiogram, M-Mode, Doppler , Color Doppler. Procedure Date Date: 07/21/2016 Start: 04:26 PM Study Location: Inpatient Portable Technical Quality: Adequate visualization Indications:Congenital heart disease. Appropriate Use Criteria: 9 Patient Status: Routine HR: 64 bpm BP: 109/58 mmHg Allergies - No known allergies. M-Mode/2D Measurements LV Diastolic Dimension: 6.12 cm LV Systolic Dimension: 5.17 cm LV Septum Diastolic: 1.43 cm LV Septum Systolic: 1.17 cm LV PW Diastolic: 1.17 cm LV PW Systolic: 1.82 cm Cardiac Output: 2.87 l/min AO Root Dimension: 3.4 cm LA Dimension: 3.9 cm EF Estimated: 35 % LA volume: 97 ml RV Base: 5.9 cm LVOT: 2.2 cm RV Mid: 4.6 cm LVOT VTI: 11.8 cm RV Length: 6.5 cm LV Stroke volume: 44.83 ml Doppler Measurements AV Peak Velocity: 2.98 m/s MV Peak E-Wave: 0.9 m/s AV Peak Gradient: 35.52 mmHg AV Mean Gradient: 20 mmHg MV P1/2t: 45 msec LVOT Peak Velocity: 0.62 m/s TR Velocity:1.47 m/s PV Peak Velocity: 0.65 m/s TR Gradient:8.64 mmHg PV Peak Gradient: 1.66 mmHg Estimated RAP:10 mmHg Estimated PASP: 18.64 mmHg Estimated RVSP: 19 mmHg A' Septal Velocity: 0.02 m/s E' Septal Velocity: 0.07 m/s MV E/E' Ratio: 13.6 Findings Left Ventricle Diastolic function indeterminate due to patient's arrhythmia. Right Ventricle Mild to moderately dilated right ventricle. Mildly reduced right ventricular function. Device lead noted in the right ventricle. Left Atrium The left atrium is mildly dilated. Right Atrium The right atrium is mild to moderately dilated. Device lead seen in the right atrium. Mitral Valve Mild to moderate mitral annular calcification. Mild-moderate mitral regurgitation by color Doppler. Aortic Valve There is moderate aortic stenosis. The peak velocity is 3.0 m/s, the mean gradient is 21 mmHg, stroke volume index is 45 ml/m2. There is mild to moderate aortic regurgitation by color Doppler. Tricuspid Valve Moderate tricuspid regurgitation by color Doppler. The estimated pulmonary pressure (RVSP) is 35-40 mmHg. IVC not visualized Pulmonic Valve Normal pulmonic valve structure and function. Pericardial Effusion No evidence of pericardial effusion. Miscellaneous Visualized portions of the aortic root and ascending aorta appear normal in size. Pleural Effusion No evidence of pleural effusion. Contractility Score LV regional wall motion:(0-Non visualized 1-Normal 2-Hypokinesis 3-Akinesis 4-Dyskinesis 5-Aneurysm) Signature dtt: LAURYN RIVERA dtd: 07/21/16 1626 Physician Self Edit
[~2016-07-20 16:23] MED LIST changes: -FEOSOL325 MG PO; -TIROSINT25 MCG PO
[2016-07-20 16:55] LABS: BASOPHIL % 0.8 %; EOSINOPHIL % 0.6 %; HEMOGLOBIN 11.4 g/dL (11.0-16.0); IMMATURE GRANULOCYTE % 0.3 %; LYMPHOCYTE # 1.1 K/uL (0.8-4.0); LYMPHOCYTE % 29.2 %; MCH 24.3 pg (27.0-34.0); MCV 83.8 fl (83.0-98.0); MONOCYTE # 0.5 K/uL (0.0-1.0); MONOCYTE % 13.1 %; NRBC % 1.1 /100WBC (0-0.00); PLATELET COUNT 85 K/uL (150-450); RBC 4.69 M/uL (3.50-5.50); WBC 3.6 K/uL (4.0-11.0)
[2016-07-20 16:56] LABS: HEMATOCRIT 39.3 % (33.0-50.0); RDW-CV 28.8 % (11.9-14.6)
[2016-07-20 17:01] LABS: INR - (THERAPEUTIC) 1.39 (0.92-1.07); PROTIME 14.6 SECONDS (9.8-11.4); PTT 32 SECONDS (25-32)
[2016-07-20 17:13] LABS: ALK PHOS 132 IU/L (33-138); ALT 23 IU/L (12-78); ANION GAP 15.4 (10.0-19.0); AST 31 IU/L (10-40); BLOOD UREA NITROGEN 33 mg/dL (6-24); CALCIUM 9.1 mg/dL (8.5-10.5); CHLORIDE 104 mMol/L (96-110); CO2 24 mMol/L (22-32); CPK 50 IU/L (35-332); CREATININE 2.1 mg/dL (0.6-1.3); ESTIMATED GFR (MDRD EQUATION) 30; POTASSIUM 4.4 mMol/L (3.7-5.1); SODIUM 139 mMol/L (135-145); TOTAL PROTEIN 7.2 g/dL (6.0-8.4)
[2016-07-20 17:14] LABS: TOTAL BILIRUBIN 2.3 mg/dL (0.0-1.5)
[2016-07-20] MEDS ORDERED: FEOSOL325 MG PO (21:01)
[2016-07-20] MEDS ORDERED: TIROSINT25 MCG PO (21:01)
[2016-07-21 04:48] LABS: BASOPHIL % 0.9 %; EOSINOPHIL % 0.6 %; HEMATOCRIT 37.9 % (33.0-50.0); IMMATURE GRANULOCYTE % 0.3 %; LYMPHOCYTE # 0.8 K/uL (0.8-4.0); MCH 24.6 pg (27.0-34.0); MCV 84.8 fl (83.0-98.0); MONOCYTE # 0.4 K/uL (0.0-1.0); MONOCYTE % 13.1 %; NEUTROPHIL % 60.1 %; NRBC % 0.9 /100WBC (0-0.00); PLATELET COUNT 74 K/uL (150-450); RBC 4.47 M/uL (3.50-5.50); RDW-CV 28.7 % (11.9-14.6); WBC 3.4 K/uL (4.0-11.0)
[2016-07-21 05:14] LABS: ANION GAP 14.4 (10.0-19.0); CALCIUM 8.9 mg/dL (8.5-10.5); CREATININE 1.9 mg/dL (0.6-1.3); POTASSIUM 4.4 mMol/L (3.7-5.1)
--- NOTE | 2016-07-21 08:20 | NUR ---
2034: ADMIT TO PCU FROM ER. WAS BROUGHT TO ER BY DAUGHTER FOR INCREASED WEAKNESS. HAS BEEN GETTING PROGRESSIVELY WORSE OVER LAST 10 DAYS. PT IS CONFUSED. HE KNOWS WHO HE IS AND CAN CARRY ON A CONVERSATION BUT WHEN ASKED HE DOESN'T KNOW WHERE HE IS, HE THINKS THE YEAR IS 2015 AND HAS NO IDEA WHO THE PRESIDENT IS. HEART RHYTHM IS A-FIB. INCONT OF URINE. PLT ARE 85. DENIES PAIN.
--- NOTE | 2016-07-21 08:24 | NUR ---
Significant Event: CONTINUED TO DENY PAIN. CONTINUES TO BE INCONT OF URINE. HR 90s TO 1 TEENS. REMAINS CONFUSED BUT DOES NOW KNOW HE IS IN THE HOSPITAL. REMAINS ON ROOM AIR. SLEEPING WELL MOST OF NIGHT. Follow up:
[2016-07-21 11:31] LABS: BLOOD URINE 25 /UL (NEGATIVE); GLUCOSE URINE NEGATIVE (NEGATIVE); KETONE URINE 5 mg/dL (NEGATIVE); LEUKOCYTES URINE NEGATIVE /UL (NEGATIVE); NITRITE URINE NEGATIVE (NEGATIVE); PROTEIN URINE 30 mg/dL (NEGATIVE); SPEC GRAVITY URINE 1.025 (1.003-1.035); UROBILINOGEN URINE 4 mg/dL (NORMAL)
--- NOTE | 2016-07-21 11:36 | NUR ---
EMILY Watkins at [facility] wanting an update on Binu. I called her back, , updated her to Acna' status here at [facility]. Told her that I wasn't sure at this time if he would be able to go straight home with [facility] again or if we would have to look into SNF placement for him for a short time. She was fine with this. Roland tells me that they were providing him with PT/OT/RN services for [facility]. I let her know that I would continue to keep her updated on his progress here and when dismissal got closer let her know as well. I visited with RN Beth, who tells me that he will probably be here for a few days and then she isn't for sure what the plan for dismissal will be. did come around and order for therapies to start working with him, as well as getting him a PICC line placed. I will stop by and talk with Binu and family later today or early next week. CM to continue to follow and assist.
[2016-07-21 11:38] LABS: COLOR URINE YELLOW (YELLOW); TURBIDITY URINE 1+ (CLEAR)
[2016-07-21 11:46] LABS: WBC URINE 0-2 #/HPF (NEGATIVE)
[2016-07-21 11:47] LABS: BACTERIA URINE RARE (NEGATIVE); EPITHELIAL URINE RARE #/HPF (NEGATIVE)
[2016-07-21 11:49] LABS: GRANULAR CASTS URINE RARE #/LPF (NEGATIVE)
--- NOTE | 2016-07-21 19:03 | NUR ---
VARELA PLACED TODAY FOR ACCURATE I&O. PATIENT WAS UP IN ROOM WITH PT. WALKED TO WINDOW AND BACK TO BED. PATIENT WAS ALSO UP CHAIR TODAY X1 AND TOLERATED WELL.
[2016-07-22 03:27] LABS: BASOPHIL % 0.4 %; EOSINOPHIL % 0.8 %; HEMATOCRIT 35.8 % (33.0-50.0); HEMOGLOBIN 10.6 g/dL (11.0-16.0); IMMATURE GRANULOCYTE % 0.2 %; LYMPHOCYTE # 0.9 K/uL (0.8-4.0); LYMPHOCYTE % 18.5 %; MCH 24.7 pg (27.0-34.0); MCHC 29.6 gm/dL (32.0-36.5); MCV 83.4 fl (83.0-98.0); MONOCYTE # 0.5 K/uL (0.0-1.0); MONOCYTE % 9.8 %; NEUTROPHIL # (ANC) 3.5 K/uL (1.4-9.0); NEUTROPHIL % 70.3 %; NRBC % 0 /100WBC (0-0.00); PLATELET COUNT 80 K/uL (150-450); RBC 4.29 M/uL (3.50-5.50); RDW-CV 28.6 % (11.9-14.6)
[2016-07-22 03:43] LABS: ANION GAP 15.9 (10.0-19.0); CALCIUM 8.6 mg/dL (8.5-10.5); CREATININE 1.8 mg/dL (0.6-1.3); POTASSIUM 3.9 mMol/L (3.7-5.1)
--- NOTE | 2016-07-22 04:41 | NUR ---
Significant Event: DISORIENTED TO TIME. CONFUSED.BED ALARM ON. NO ATTEMPTS TO GET UP WITHOUT ASSISTENCE.RESTED IN BED ALL OF SHIFT. TURNED Q 2 HRS SIDE TO SIDE. AFEBRILE. VSS ON RA. SBP 98-110 . ORTHOSTATIC BLOOD PRESSURES DOCUMENTED IN CHART. VARELA PRESENT WITH 800 MLS OUT. NO BM THIS SHIFT. IV TO R) FA SL. EKG THIS AM. DENIES PAIN. Follow up: CONTINUE [facility] PLAN OF CARE.
--- NOTE | 2016-07-22 15:25 | NUR ---
Significant Event: Alert but remains confused at times. Heavy 2 assist. Denies pain. Simons to DD, no diuretics given today d/t SBP 90s. Orthostatic BPs obtained and documented in progress notes. Follow up: continue plan of care/needs placement.
[2016-07-23 03:55] LABS: BASOPHIL % 0.5 %; EOSINOPHIL # 0.1 K/uL (0.0-0.5); EOSINOPHIL % 2.1 %; HEMATOCRIT 38.2 % (33.0-50.0); IMMATURE GRANULOCYTE % 0.3 %; LYMPHOCYTE % 25.7 %; MCH 24.3 pg (27.0-34.0); MCHC 28.8 gm/dL (32.0-36.5); MCV 84.5 fl (83.0-98.0); MONOCYTE # 0.5 K/uL (0.0-1.0); MONOCYTE % 12.3 %; NEUTROPHIL # (ANC) 2.2 K/uL (1.4-9.0); NEUTROPHIL % 59.1 %; NRBC % 0.8 /100WBC (0-0.00); PLATELET COUNT 78 K/uL (150-450); RBC 4.52 M/uL (3.50-5.50); RDW-CV 28.9 % (11.9-14.6); WBC 3.7 K/uL (4.0-11.0)
[2016-07-23 04:02] LABS: ANION GAP 14.9 (10.0-19.0); CALCIUM 8.6 mg/dL (8.5-10.5); CREATININE 1.6 mg/dL (0.6-1.3); MAGNESIUM 2.1 mg/dL (1.8-2.6); POTASSIUM 3.9 mMol/L (3.7-5.1)
--- NOTE | 2016-07-23 04:57 | NUR ---
Significant Event: A/0X2. DISORIENTED TO TIME. FORGETFUL TO PLACE AT TIMES.UP IN CHAIR BEGINNING OF SHIFT. TURNED Q 2 HRS SIDE TO SIDE. AFEBRILE. VSS ON RA. SBP 90'S. MAP >65. DENIES PAIN. IV TO R) FA SL. VARELA PATENT WITH 350 MLS OUT. NO BM THIS SHIFT. Follow up: CONTINUE WITH PLAN OF CARE.
--- NOTE | 2016-07-23 16:29 | NUR ---
Significant Event: Alert, remains confused to place and time. Denies pain. Around 1230 today patient was up in chair eating lunch and began choking. Patient was suctioned and O2 applied - patient moved to bed via full lift and RT then provided nasopharangeal suction and roughly 50ml of secretions suctioned. Dr Jules Fuentes notified order for PCXR, Dr Fuentes called with CXR results and notified that DR Pulido recommends a repeat CXR in 6 hours. Repeat CXR at [address] Jules Fuentes wants called with results. Speech consult in AM and NPO until then. DR Jules Fuentes wants Dr Craig notified of episode tomorrow and states he will hold off on starting antibiotics or IV fluids until tomorrow. Patient currently remains afebrile and stable on 2L/NC. Nonproductive wet cough, LS now coarse R)LL. Ronak MARISCAL'chantel at 1400 with no void as of yet. Daughter notified of episode this afternoon and of plan of care. Follow up: needs placement
[2016-07-24 03:38] LABS: BASOPHIL % 0.2 %; HEMATOCRIT 38.3 % (33.0-50.0); HEMOGLOBIN 11.4 g/dL (11.0-16.0); IMMATURE GRANULOCYTE % 0.7 %; LYMPHOCYTE # 0.5 K/uL (0.8-4.0); LYMPHOCYTE % 8.2 %; MCH 25.2 pg (27.0-34.0); MCHC 29.8 gm/dL (32.0-36.5); MCV 84.5 fl (83.0-98.0); MONOCYTE # 0.5 K/uL (0.0-1.0); MONOCYTE % 7.4 %; NEUTROPHIL # (ANC) 5.1 K/uL (1.4-9.0); NEUTROPHIL % 83.5 %; NRBC % 0.3 /100WBC (0-0.00); PLATELET COUNT 80 K/uL (150-450); RBC 4.53 M/uL (3.50-5.50); RDW-CV 29.5 % (11.9-14.6); WBC 6.1 K/uL (4.0-11.0)
--- NOTE | 2016-07-24 05:02 | NUR ---
Significant Event: DISORIENTED TO TIME,PLACE,SITUATION. FORGETFUL. SLEPT OFF AND ON THROUGHOUT THE NIGHT. TURNED Q 2 HRS SIDE TO SIDE. AFEBRILE. VSS ON RA. WEANED PATIENT TO RA AND WAS 90-93% ON RA. PATIENT STILL HAS A WEAK DRY COUGH. CHEST XRAY THIS EVENING SHOWED ASPIRATION PNEUMONIA NEIDA LOWER LOBES. STARTED ON IV CLINDAMYCIN AND LEVAQUIN. NPO. SPEECH EVAL THIS AM. IV TO R) FA SL. INCONTINENT OF LARGE AMOUNTS OF URINE X3. NO BM THIS SHIFT. Follow up: CONTINUE WITH PLAN OF CARE
--- NOTE | 2016-07-24 12:56 | NUR ---
1200 Introduced self and CM role to Binu, his daughter and her who was at bedside. Daughter tells me that prior to coming into [facility], Binu was living at home, but she was in the process of trying to get him into a SNF as she wasn't able to care for him anymore at home. She is open to whichever SNF will accept in [facility]. Did share with me that [facility] was the least favorite of them all but she also understands that if he has to go there it will be ok. I let her know that I would call/fax in referrals to SNFs in [facility] and see which ones might be able to accept when he is ready for dismissal. He does have a history of being at [facility] in the past and family would be open to going there if they could accept. Will call/fax in referrals later this afternoon, I am not for sure when he will be ready for dismissal at this time. CM to continue to follow and assist.
[2016-07-25 04:45] LABS: BASOPHIL % 0.7 %; EOSINOPHIL # 0.1 K/uL (0.0-0.5); EOSINOPHIL % 1.5 %; HEMATOCRIT 37.3 % (33.0-50.0); HEMOGLOBIN 11.1 g/dL (11.0-16.0); IMMATURE GRANULOCYTE % 0.7 %; LYMPHOCYTE # 0.8 K/uL (0.8-4.0); LYMPHOCYTE % 17.8 %; MCH 25.1 pg (27.0-34.0); MCHC 29.8 gm/dL (32.0-36.5); MCV 84.2 fl (83.0-98.0); MONOCYTE # 0.5 K/uL (0.0-1.0); MONOCYTE % 10.3 %; NEUTROPHIL # (ANC) 3.2 K/uL (1.4-9.0); NRBC % 0 /100WBC (0-0.00); PLATELET COUNT 76 K/uL (150-450); RBC 4.43 M/uL (3.50-5.50); RDW-CV 29.8 % (11.9-14.6); WBC 4.6 K/uL (4.0-11.0)
--- NOTE | 2016-07-25 04:55 | NUR ---
Significant Event: SBP 102-94. MAP mid 70's. HR 80's-low 100's. RA until sleeping then sats 87%. Placed him on 1L NC and sats have remained mid 90's t/o night. Rested well. Turned every 2 hours. Inc. of urine. No BM tonight. Took pills well in pudding. Patient finished pudding cup and did well with honey thick liquids. Follow up: Continue to monitor.
[2016-07-25 05:05] LABS: ANION GAP 12.1 (10.0-19.0); CALCIUM 8.6 mg/dL (8.5-10.5); CREATININE 1.5 mg/dL (0.6-1.3); POTASSIUM 4.1 mMol/L (3.7-5.1)
--- NOTE | 2016-07-25 08:43 | NUR ---
A - NUTRITION F/U. DISORIENTED. GLU 104, BUN/TEACHER OF THE HANDICAPPED 7/1.5. DIET: PUREE HONEY THICK W/ ENSURE PUDDING AND MAGIC CUPS. INTAKE USUALLY 50%. D - AT RISK W/ DIFFICULTY SWALLOWING R/T WEAKNESS AEB NEED FOR ALTERED CONSISTENCY DIET. I - GOAL: 50% OR BETTER INTAKE BY NEXT REVIEW. M/E - CONT TO ENCOURAGE MEAL AND SUPPLEMENT INTAKE. WILL F/U IN 3-5 DAYS.
--- NOTE | 2016-07-25 10:15 | NUR ---
09 Call from Kelsey at [facility], she states that she would be more than happy to take Binu back as they have had him in the past but she is going to have to check with her DON and then get back to me. I did let her know that he is on Q8 IV Abxs, but I have left a note on the chart asking MD to look at this and see if we can get it changed to something one time per day or even switch to PO if possible. Will wait to hear back from Kelsey on when/if they can take, she was going to call and talk with Portia' daughter and then update me as well. CM to continue to follow and assist.
[2016-07-26 03:49] LABS: BASOPHIL % 0.8 %; EOSINOPHIL # 0.1 K/uL (0.0-0.5); HEMATOCRIT 37.3 % (33.0-50.0); IMMATURE GRANULOCYTE % 0.3 %; LYMPHOCYTE # 0.7 K/uL (0.8-4.0); LYMPHOCYTE % 17.8 %; MCH 25.5 pg (27.0-34.0); MCHC 29.5 gm/dL (32.0-36.5); MCV 86.5 fl (83.0-98.0); MONOCYTE # 0.4 K/uL (0.0-1.0); MONOCYTE % 10.4 %; NEUTROPHIL # (ANC) 2.7 K/uL (1.4-9.0); NEUTROPHIL % 68.7 %; NRBC % 0 /100WBC (0-0.00); PLATELET COUNT 77 K/uL (150-450); RBC 4.31 M/uL (3.50-5.50); RDW-CV 30.5 % (11.9-14.6); WBC 3.9 K/uL (4.0-11.0)
[2016-07-26 04:05] LABS: ALBUMIN 2.5 gm/dL (3.5-5.0); ANION GAP 10.9 (10.0-19.0); CALCIUM 8.7 mg/dL (8.5-10.5); CREATININE 1.5 mg/dL (0.6-1.3); POTASSIUM 3.9 mMol/L (3.7-5.1); TOTAL PROTEIN 6.5 g/dL (6.0-8.4)
[2016-07-26 04:06] LABS: TOTAL BILIRUBIN 1.6 mg/dL (0.0-1.5)
--- NOTE | 2016-07-26 04:49 | NUR ---
Patient A/O to self. VSS on RA. 2 assist with walker and gaitbelt. Lifted back into bed. Lungs clear. Bowel sounds present, 3BMs this shift. Incont of urine. IV to Rt forearm saline locked. Repo Q2HRS. Takes pills crushed in chocolete pudding. Decrease appitite. Need Placement.
--- NOTE | 2016-07-26 13:14 | NUR ---
Call from stating that he is able to stop Alfreds' IV Abxs today and switch them to orals so he would be ready to dismiss to SNF tomorrow. I phoned over to Kelsey at [facility], she tells me that they will be able to accept Binu tomorrow, 07/27 at 1230, [place] van will pick him up at that time. Packet started, orders printed, ID Screen is done and in the packet. Updated daughter who was at bedside and also RN Ti who was outside of his room. Placed a sticky note with the above information on it for any further parties that needed to be informed. Left the RN to RN number on the note for report to be called to SNF tomorrow before his dismissed. Called and updated him as well, he states he will be over tomorrow morning to complete the orders. Called and updated Jenna at [facility] to the above. No other questions, needs or concerns.
--- NOTE | 2016-07-26 18:00 | NUR ---
Significant Event: Patient calm and cooperative throughout the day. Answers questions appropriately, but does not know date. Up with 2 max assist. VSS on RA. Held evening Coreg due to SBP in upper 90's. Advanced dietto mechanical soft food, nectar thick liquids, and meds crushed in pudding. LFA PIV SL. Denies pain throughout the day. Follow up: Continue as per plan of care. Plan to go to [facility] tomorrow.
--- NOTE | 2016-07-27 04:25 | NUR ---
FORGETFUL. HR 80-90s. AFIB. AFEBRILE. ROOM AIR. SBP 90-100s. INCON BOWEL/BLADDER. TURN 2QHR. DENIES PAIN. HEAVY 2A/LIFT. WAITING PLACEMENT.
[2016-07-27 04:58] LABS: BASOPHIL % 0.8 %; EOSINOPHIL # 0.1 K/uL (0.0-0.5); EOSINOPHIL % 2.1 %; HEMATOCRIT 38.8 % (33.0-50.0); HEMOGLOBIN 11.6 g/dL (11.0-16.0); IMMATURE GRANULOCYTE % 1.1 %; LYMPHOCYTE # 0.9 K/uL (0.8-4.0); MCH 25.6 pg (27.0-34.0); MCHC 29.9 gm/dL (32.0-36.5); MCV 85.5 fl (83.0-98.0); MONOCYTE # 0.4 K/uL (0.0-1.0); MONOCYTE % 10.7 %; NEUTROPHIL # (ANC) 2.3 K/uL (1.4-9.0); NEUTROPHIL % 62.3 %; NRBC % 0 /100WBC (0-0.00); PLATELET COUNT 79 K/uL (150-450); RBC 4.54 M/uL (3.50-5.50); RDW-CV 30.7 % (11.9-14.6); WBC 3.7 K/uL (4.0-11.0)
[2016-07-27 05:20] LABS: ANION GAP 13.9 (10.0-19.0); CALCIUM 8.6 mg/dL (8.5-10.5); CREATININE 1.4 mg/dL (0.6-1.3); POTASSIUM 3.9 mMol/L (3.7-5.1)
--- NOTE | 2016-07-27 10:26 | NUR ---
Stopped up to the chart, reviewed discharge medications and made sure that they were all complete. They were done by . Faxed dismissal orders over to [facility] at 0937 this morning. RN Priya aware that RN to RN number is on the chart and will need to be called in before he dismisses at 1230 via [place] van. Daughter aware of the transport and in agreement with dismissal today. No other questions, needs or concerns. Packet complete, orders complete, ID Screen complete and in the packet. CM to continue to follow and assist.
--- NOTE | 2016-07-27 10:59 | NUR ---
Transfer Note: Disoriented to time/place. Forgetful. [id number]. P-90-110s. Afib. Afebrile. Room air and CPAP with 2 L at HS. Lungs clear diminished and diminished in the bases. INC of stool and urine. Vdx2 todayand BM x1. Mechanical soft diet with nectar thick liquids. Pills crushed with apple sauce. Up with heavy 2A or lift. Redness/excoriation to scrotum. Alovesta applied. Denies pain.
== END 2016-07-27 12:38 | DRG 291 ==
LOC: GMED 16:23 → GPCU 19:29
PROVIDERS: Family Medicine; Internal Medicine Interventional Cardiology; ADMIT Obstetrics & Gynecology Obstetrics
DX: I13.0 Hypertensive heart and chronic kidney disease with heart failure and stage 1 through stage 4 chronic kidney disease, or unspecified chronic kidney disease (principal); J69.0 Pneumonitis due to inhalation of food and vomit; N17.9 Acute kidney failure, unspecified; I50.23 Acute on chronic systolic (congestive) heart failure; R53.1 Weakness; I25.5 Ischemic cardiomyopathy; I25.10 Atherosclerotic heart disease of native coronary artery without angina pectoris; Z51.5 Encounter for palliative care; Z66 Do not resuscitate; I48.2 Chronic atrial fibrillation; N18.9 Chronic kidney disease, unspecified; E03.9 Hypothyroidism, unspecified; F32.9 Major depressive disorder, single episode, unspecified; E78.5 Hyperlipidemia, unspecified; I34.0 Nonrheumatic mitral (valve) insufficiency; K59.09 Other constipation; Z79.01 Long term (current) use of anticoagulants; Z95.810 Presence of automatic (implantable) cardiac defibrillator; Z79.82 Long term (current) use of aspirin; Z95.1 Presence of aortocoronary bypass graft; Z95.5 Presence of coronary angioplasty implant and graft; Z86.73 Personal history of transient ischemic attack (TIA), and cerebral infarction without residual deficits; Z87.891 Personal history of nicotine dependence
CPT/HCPCS: J1650; J1940; J1956; J7030; J7050